=== PATIENT | male | born 1935 | race Caucasian/White ===

== ENCOUNTER 2017-02-18 17:54 | Emergency (ER) | payer MEDICARE, BC ==
--- NOTE | 2017-02-18 19:52 | EDM.PDOC ---
ED HPI GENERAL MEDICAL PROBLEM - General Chief Complaint: General Stated Complaint: HIGH BLOOD PRESSURE Time Seen by Provider: 02/18/17 18:30 Source of Information: Reports: Patient History Limitations: Reports: No Limitations - History of Present Illness INITIAL COMMENTS - FREE TEXT/NARRATIVE: blood pressure check; this is a 81 year old male present to the ER via POV from [place]. He reports having concerns of worsening kidney function and blood pressure issue. His blood pressure varies from 140's to 150's systolic. He has an appointment at [facility] on Wednesday, February 22, 2017 with Nephrology. Today, prior to arrival he had a blood pressure of 190 systolic, he googled high blood pressure, it said to come to ER for evaluation. He denies any chest pain, shortness of breath, nausea, vomiting, diarrhea, headache or other concerns. He does report shortness of breath with activity, occasional light headedness when standing up quickly. denies any falls or injury. Duration: Other (blood pressure high) Location: Reports: Other (denies any head pain, chest pain or shortness of breath.) Improves with: Reports: None Worsens with: Reports: None Associated Symptoms: Reports: No Other Symptoms - Related Data Allergies Allergy/AdvReac Type Severity Reaction Status Date / Time No Known Allergies Allergy Verified 02/18/17 18:00 Home Meds: Home Meds Aspirin 81 mg PO DAILY 02/18/17 [History] FLUoxetine [PROzac] 20 mg pe PO BID 02/18/17 [History] Loperamide [Imodium AD] 2 mg PO BID 02/18/17 [History] Ranitidine HCl [Ranitidine] 300 mg PO BID 02/18/17 [History] Risedronate Sodium 35 mg PO DAILY 02/18/17 [History] Sucralfate [Sucralfate] 1 gm PO BID 02/18/17 [History] Tamsulosin HCl 0.4 mg PO DAILY 02/18/17 [History] Past Medical History HEENT History: Reports: Impaired Vision Cardiovascular History: Reports: CAD Gastrointestinal History: Reports: Other (See Below) Other Gastrointestinal History: ulcerative colitis Genitourinary History: Reports: Renal Disease, UTI, Recurrent Hematologic History: Reports: B12 Deficiency, Blood Transfusion(s) - Past Surgical History GI Surgical History: Reports: Colonoscopy, Small Bowel Male Surgical History: Reports: None Social & Family History - Family History Family Medical History: Noncontributory ED ROS GENERAL - Review of Systems Review Of Systems: See Below Constitutional: Reports: No Symptoms HEENT: Reports: No Symptoms Respiratory: Reports: No Symptoms Cardiovascular: Reports: No Symptoms Endocrine: Reports: No Symptoms GI/Abdominal: Reports: No Symptoms : Reports: No Symptoms, Other (new diagnosis of CKD) Musculoskeletal: Reports: No Symptoms Skin: Reports: No Symptoms Neurological: Reports: No Symptoms Psychiatric: Reports: No Symptoms Hematologic/Lymphatic: Reports: No Symptoms Immunologic: Reports: No Symptoms ED EXAM, GENERAL - Physical Exam Exam: See Below Exam Limited By: No Limitations General Appearance: Alert, WD/WN, No Apparent Distress Ears: Normal External Exam, Normal Canal Ear Exam: Bilateral Ear: Auricle Normal, Canal Normal, TM normal Nose: Normal Inspection, Normal Mucosa, No Blood Throat/Mouth: Normal Inspection, Normal Lips, Normal Teeth, Normal Gums, Normal Oropharynx, Normal Voice, No Airway Compromise Head: Atraumatic, Normocephalic Neck: Normal Inspection Respiratory/Chest: No Respiratory Distress, Lungs Clear, Normal Breath Sounds, No Accessory Muscle Use, Chest Non-Tender, Wheezing (right lower lobe.) Cardiovascular: Normal Peripheral Pulses, Regular Rate, Rhythm, No Edema, No JVD , No Murmur, No Rub GI/Abdominal: Normal Bowel Sounds, Soft, Non-Tender, No Organomegaly, No Distention, No Abnormal Bruit, No Mass (Male) Exam: Deferred Rectal (Males) Exam: Deferred Back Exam: Normal Inspection, Full Range of Motion Extremities: Normal Inspection, Normal Range of Motion, Non-Tender, No Pedal Edema, Normal Capillary Refill Neurological: Alert, Oriented, CN II-XII Intact, Normal Cognition, Normal Gait, Normal Reflexes, No Motor/Sensory Deficits Psychiatric: Normal Affect, Normal Mood Skin Exam: Warm, Dry, Intact, Normal Color, No Rash Lymphatic: No Adenopathy Course - Vital Signs Last Recorded V/S: Last Vital Signs Temp 37.1 C 02/18/17 18:12 Pulse 73 02/18/17 18:12 Resp 12 02/18/17 18:12 BP 147/86 H 02/18/17 18:12 Pulse Ox 98 02/18/17 18:12 - Orders/Labs/Meds Labs: Laboratory Tests 08/02/18/17 02/18/17 Range/Units 18:52 18:52 18:52 WBC 6.2 (4.0-11.0) K/uL RBC 3.60 L (4.50-6.50) M/uL Hgb 13.1 (13.0-18.0) g/dL Hct 37.6 L (40.0-54.0) % MCV 104 H (76-96) fL MCH 36.4 H (27.0-32.0) pg MCHC 34.8 (31.0-35.0) g/dL RDW 13.1 (11.0-16.0) % Plt Count 163 (150-400) K/uL MPV 10.1 H (6.0-10.0) fL Neut % (Auto) 61.5 (45.0-70.0) % Lymph % (Auto) 24.8 (20.0-40.0) % [place] % (Auto) 13.7 H (3.0-10.0) % Eos % (Auto) 0.0 L (1.0-5.0) % Baso % (Auto) 0.0 (0.0-0.5) % Neut # (Auto) 3.82 (2.00-7.50) K/uL Lymph # (Auto) 1.54 (1.50-4.00) K/uL Mingo # (Auto) 0.85 H (0.20-0.80) K/uL Eos # (Auto) 0.00 L (0.04-0.40) K/uL Baso # (Auto) 0.00 L (0.02-0.10) K/uL Sodium 140 (136-145) mmol/L Potassium 3.9 (3.5-5.1) mmol/L Chloride 107 (98-107) mmol/L Carbon Dioxide 26.2 (21.0-32.0) mmol/L Anion Gap 10.7 (5.0-15.0) mmol/L BUN 28 H (8-26) mg/dL Creatinine 1.77 H (0.70-1.30) mg/dL Est Cr Clr Drug Dosing TNP Estimated GFR (MDRD) 37 L (>60) MLS/MIN BUN/Creatinine Ratio 15.8 (6-25) Glucose 96 (74-100) mg/dL Calcium 9.1 (8.5-10.1) mg/dL Urine Color Yellow Urine Appearance Clear (CLEAR) Urine pH 5.5 (5.0-8.0) Ur Specific [place] 1.025 (1.003-1.030) Urine Protein 100 H (NEGATIVE) mg/dL Urine Glucose (UA) Negative (NEGATIVE) mg/dL Urine Ketones Negative (NEGATIVE) mg/dL Urine Occult Blood Negative (NEGATIVE) Urine Nitrite Negative (NEGATIVE) Urine Bilirubin Negative (NEGATIVE) Urine Urobilinogen 0.2 (0.2-1.0) E.U./dL Ur Leukocyte Esterase Negative (NEGATIVE) Urine RBC Not seen /HPF Urine WBC Not seen /HPF Ur Squamous Epith Cells Rare /HPF Urine Bacteria Not seen /HPF - Re-Assessments/Exams Free Text/Narrative Re-Assessment/Exam: 02/18/17 Labs reviewed and compared with labs one earlier this month; no acute changes blood pressure in ER 140's/60's discussed with Mr. Antoine labs and vital signs are unchanged from previous test. will discharge to home. given blood pressure sheet to monitor B/P, discussed B/P vary with activities, meals, intake. advise to return to ER for any head pain, chest pain, shortness of breath or any concerns. He agrees with plan of care. Departure - Departure Time of Disposition: 19:15 Disposition: Home, Self-Care 01 Condition: Good Clinical Impression: Hypertension screening - Discharge Information Instructions: Hypertension, [id number], Chronic Kidney Disease Referrals: PCP,None [Primary Care Provider] - Forms: ED Department Discharge Care Plan Goals: blood pressure -continue to monitor as directed by Primary Care -return to ER for any chest pain, shortness of breath, fever, chills, nausea, vomiting, diarrhea, or any concerns.
== END 2017-02-18 19:15 | disposition home or self-care (01) ==
LOC: LB.ED 17:54
DX: Z13.6 Encounter for screening for cardiovascular disorders (principal); I25.10 Atherosclerotic heart disease of native coronary artery without angina pectoris; Z79.82 Long term (current) use of aspirin; Z87.440 Personal history of urinary (tract) infections; Z79.899 Other long term (current) drug therapy
CPT/HCPCS: 36415; 80048; 81001; 85025; 99282; 99283